=== PATIENT | female | born 1955 | race Caucasian/White ===

== ENCOUNTER 2016-09-09 05:34 | Inpatient (IN) | payer BC ==
--- NOTE | ~2016-09-09 | OP ---
Record Of Operation [facility] [address] [place]. [address] NAME: MARLENY FLORES : 55 STATUS : DIS IN PAT#: [id number] AGE: 60 ADM/REG DATE : 09/09/16 MR#: [id number] REPORT SERV DATE: 09/18/16 DICTATED BY: GORDY MARKHAM II DATE: 09/17/16 REPORT STATUS : Draft TRANSCRIBED BY: MODRuthie DATE: 09/17/16 DATE OF PROCEDURE: 09/09/2016 [facility] ATTENDANT: Dr. Larose. PREOPERATIVE DIAGNOSIS: Symptomatic left carotid stenosis. POSTOPERATIVE DIAGNOSIS: Symptomatic left carotid stenosis. PROCEDURES: 1. Left carotid endarterectomy with bovine patch angioplasty. 2. Completion of intraoperative duplex ultrasound. ANESTHESIA: General. IV FLUIDS: 800 mL. ESTIMATED BLOOD LOSS: 50 mL. SPECIMENS: Carotid plaque. DRAINS: A 15-Dominican Julio. DETAILS OF THE PROCEDURE: The patient was taken to the operating room and placed in the supine position on the table. General anesthesia was achieved. Protective padding and a shoulder roll was placed. We then prepped and draped in a sterile fashion. An incision was made along the anterior border of sternocleidomastoid. The platysma was divided with electrocautery. The facial vein was ligated with 2-0 silk. The carotid sheath was opened and the common, internal, and external carotid arteries were mobilized from the surrounding tissues and vessel loops were placed. Systemic heparin was given. The hypoglossal and vagus nerves were identified and preserved. Arteriotomy was made in the common carotid and extended through the bifurcation onto the internal carotid. A shunt was placed without difficulty. Using a [place] elevator, all visible plaque was removed down to a smooth endarterectomy surface. A 7-0 tacking sutures were placed distally. We then closed the vessel using a bovine pericardial patch and a running 6-0 Prolene. Prior to complete closure, we flushed and removed the shunt. Intraoperative ultrasound was performed demonstrating a widely patent endarterectomy site. There was no thrombus, filling defect, or debris noted. We then thoroughly irrigated, ensured hemostasis, placed a 15-Domin[place] Julio drain and then closed using interrupted 3-0 Vicryl in the platysma. We closed the skin with Monocryl. At the end of the procedure, the patient was stable. She had tolerated the procedure well. KEYON/NEGINL Record Of [place] [id number] [address] NAME: MARLENY FLORES : 55 STATUS : DIS IN PAT#: [id number] AGE: 60 ADM/REG DATE : 09/09/16 MR#: [id number] REPORT SERV DATE: 09/18/16 DICTATED BY: GORDY MARKHAM II DATE: 09/17/16 REPORT STATUS : Draft TRANSCRIBED BY: [email or web address] DATE: 09/17/16 Gordy Markham II, M.D. / [id number] CC: Gordy Markham II, M.D.
[~2016-09-09 05:34] MED LIST: ACET500CAP PO; ASAB PO; IBU-200200 MG PO; V2 PO; ZOL50 PO
[2016-09-09 06:43] LABS: BASOPHILS 0.6 %; BASOPHILS ABSOLUTE 0.04 10/3/uL (0.0-0.16); EOSINOPHILS 7.8 %; EOSINOPHILS ABSOLUTE 0.54 10/3/uL (0.0-0.53); HEMATOCRIT 45.6 % (36.0-48.0); HEMOGLOBIN 15.1 g/dL (12.0-16.0); LYMPHOCYTES 36.5 %; LYMPHOCYTES ABSOLUTE 2.52 10/3/uL (0.67-4.30); MEAN CORPUS HGB CONC 33.1 g/dL (32.0-36.0); MEAN CORPUSCULAR VOLUME 93.6 fL (80-100); MEAN PLATELET VOLUME 9.3 fL (9.2-13.0); MONOCYTES 10.7 %; MONOCYTES ABSOLUTE 0.74 10/3/uL (0.21-1.20); NEUTROPHILS 44.4 %; NEUTROPHILS ABSOLUTE 3.06 10/3/uL (2.02-8.40); PLATELET COUNT 284 10/3/uL (150-400); RBC DISTRIBUTION WIDTH 14.7 % (12.0-16.0); RED CELL COUNT 4.87 10/6/uL (4.0-5.6); WHITE BLOOD CELLS 6.9 10/3/uL (4.5-10.5)
[2016-09-09 06:47] LABS: MANUAL DIFF NO %
[2016-09-09 07:02] LABS: BUN (BLOOD UREA NITROGEN) 9 MG/DL (6-23); CHLORIDE, SERUM 110 MMOL/L (96-112); CO2 (CARBON DIOXIDE) 29 MMOL/L (24-34); CREATININE 0.71 MG/DL (0.55-1.02); GFR AFRICAN AMERICAN 107 ML/MIN (>=60); GFR NON AFRICAN AMERICAN 93 ML/MIN (>=60); GLUCOSE, SERUM 84 MG/DL (60-99); POTASSIUM, SERUM 4.1 MMOL/L (3.5-5.3); SODIUM, SERUM 143 MMOL/L (135-148)
[2016-09-09 11:40] LABS: HEMOGLOBIN 13.2 g/dL (12.0-16.0)
[2016-09-09 23:09] LABS: ASCORBIC ACID (UR NOT ORDER) NEG (NEG); BILIRUBIN, URINE NEGATIVE (NEG); KETONE, URINE NEGATIVE (NEG); LEUKOCYTE ESTERASE(NOT OR NEG (NEG); WBC (NOT ORDERED) (RFLEX) 1 (0-5)
[2016-09-10] MEDS ORDERED: LIPITOR40 (15:38)
[2016-09-10] MEDS ORDERED: PCET PO (15:38)
== END 2016-09-10 16:13 | disposition home or self-care (01) | DRG 37 ==
LOC: SDC/OF 05:34 → PACU 11:13 → CCU 13:33
PROVIDERS: Surgery
PROC: 03CL0ZZ Extirpation of Matter from Left Internal Carotid Artery, Open Approach (ICD-10-PCS; principal; 2016-09-09 07:45)
DX: I65.23 Occlusion and stenosis of bilateral carotid arteries (principal); E88.3 Tumor lysis syndrome; G45.3 Amaurosis fugax; F32.9 Major depressive disorder, single episode, unspecified; F17.210 Nicotine dependence, cigarettes, uncomplicated; I73.9 Peripheral vascular disease, unspecified; J44.9 Chronic obstructive pulmonary disease, unspecified; F41.9 Anxiety disorder, unspecified
CPT/HCPCS: 71020; 80048; 81001; 82962; 85014; 85018; 85025; 87641; 88304; 88311; 93005; 94640; A9270-GY; C1768; J0690; J1580; J2250; J2270; J2370; J2405; J2710; J2720; J3010; J3370